=== PATIENT | female | born 1990 | race Caucasian/White ===

== ENCOUNTER 2016-09-03 14:18 | Emergency (ER) | payer OTHER ==
[~2016-09-03] VITALS: Ht 177.8 cm; Wt 57.1 kg
[2016-09-03 15:31] LABS: BASOPHIL % 0.7 % (0-2); PLATELET COUNT 290 x10^3mcL (130-400); RED CELL DISTRIBUTION WIDTH 13.3 % (11.5-14.5)
[2016-09-03 15:37] LABS: CALCIUM 9.4 mg/dL (8.5-10.1); CARBON DIOXIDE 26.1 mmol/L (21-32); CHLORIDE SERUM 103 mmol/L (98-107); CREATININE SERUM 0.8 mg/dL (0.6-1.0); GFR1 > 60 mL/min; GLUCOSE SERUM 94 mg/dL (74-106); POTASSIUM SERUM 3.6 mmol/L (3.5-5.1); SODIUM SERUM 139 mmol/L (136-145)
[2016-09-03 15:42] LABS: ALBUMIN 4.6 g/dL (3.4-5.0); ALKALINE PHOSPHATASE 74 U/L (46-116); ALT/SGPT 12 U/L (14-59); AST/SGOT 12 U/L (15-37); LIPASE 124 IU/L (73-393)
[2016-09-03 15:45] LABS: TOTAL PROTEIN, SERUM 8.6 g/dL (6.4-8.2)
[2016-09-03 18:11] VITALS: BP 111/67
== END 2016-09-03 18:10 | disposition home or self-care (01) ==
LOC: ED 14:18
PROVIDERS: Emergency Medicine
DX: R10.11 Right upper quadrant pain (principal); R03.0 Elevated blood-pressure reading, without diagnosis of hypertension
CPT/HCPCS: 36415; J0500; Q0092; Q0162